=== PATIENT | male | born 1990 | race Two or more races ===

== ENCOUNTER 2021-10-05 10:11 | Emergency (ER) | payer OTHER ==
[2021-10-05 10:58] VITALS: BP 145/94; PULSE 69; TEMP 98.4; BMI 39.5
== END 2021-10-05 13:13 | disposition home or self-care (01) ==
LOC: JERFT 10:11
DX: S80.01XA Contusion of right knee, initial encounter (principal); V49.40XA Driver injured in collision with unspecified motor vehicles in traffic accident, initial encounter
CPT/HCPCS: 73562-TC-RT-FY; 99283-25